=== PATIENT | female | born 1950 | race Caucasian/White ===

== ENCOUNTER → 2016-07-24 | Outpatient (CLI) | payer OTHER | END | disposition home or self-care (01) | LOC: GMAB 10:18 | PROVIDERS: ATTEND Family Medicine | DX: Z00.01 Encounter for general adult medical examination with abnormal findings (principal) ==

== ENCOUNTER 2017-05-19 08:57 | Day surgery (SDC) | payer MEDICARE, OTHER ==
[~2017-05-19 08:57] MED LIST: MIDAZOLAM INJ 2 MG/2 ML VIAL ONE; PROPARACAINE 0.5% OPHTH SOL 15 ML BTTL ONE; TROP 1%/CYCLOPEN 1%/PHENYL 2% DROPS ONE
[2017-05-19] MEDS ORDERED: MIDAZOLAM INJ 2 MG/2 ML VIAL ONE (10:27)
[2017-05-19] MEDS ORDERED: LIDOCAINE 1% PF 2 ML AMP INJ ONE (10:31)
[2017-05-19] MEDS ORDERED: DEXAMETHASONE 0.1% OPHTH SOL 1 DROP RIGHT_EYE ONE ×2 (10:36→10:42)
[2017-05-19] MEDS ORDERED: TOBRAMYCIN SULF 0.3 % OPHT SOL 1 DROP RIGHT_EYE ONE ×2 (10:36→10:42)
[2017-05-19] MEDS ORDERED: BRIMONIDINE 0.2% OPHTH DROPS RIGHT_EYE ONE ×2 (10:36→10:42)
[2017-05-19 12:04] VITALS: BP 119/76; TEMP 98.4; O2SAT 95
== END 2017-05-19 11:20 | disposition home health service (06) ==
LOC: AMB 08:57
PROVIDERS: ATTEND Ophthalmology
DX: H25.11 Age-related nuclear cataract, right eye (principal); I10 Essential (primary) hypertension; I25.10 Atherosclerotic heart disease of native coronary artery without angina pectoris; E11.36 Type 2 diabetes mellitus with diabetic cataract; Z88.2 Allergy status to sulfonamides; Z79.84 Long term (current) use of oral hypoglycemic drugs; Z79.899 Other long term (current) drug therapy
CPT/HCPCS: 00142; 66984; J2250

== ENCOUNTER 2017-06-02 05:42 | Day surgery (SDC) | payer MEDICARE, OTHER ==
[2017-06-02] MEDS ORDERED: TROP 1%/CYCLOPEN 1%/PHENYL 2% DROPS ONE (06:01)
[2017-06-02] MEDS ORDERED: MIDAZOLAM INJ 2 MG/2 ML VIAL ONE ×2 (06:53→10:15)
[2017-06-02] MEDS: PROPARACAINE 0.5% OPHTH SOL 15 ML BTTL ONE ×3 (09:35→10:18)
[2017-06-02] MEDS: TOBRAMYCIN SULF 0.3 % OPHT SOL 1 DROP LEFT_EYE ONE ×2 (09:35→10:35)
[2017-06-02] MEDS ORDERED: LIDOCAINE 1% PF 2 ML AMP INJ ONE (10:22)
[2017-06-02] MEDS ORDERED: DEXAMETHASONE 0.1% OPHTH SOL 1 DROP LEFT_EYE ONE ×2 (10:27→10:35)
[2017-06-02] MEDS ORDERED: TOBRAMYCIN SULF 0.3 % OPHT SOL 1 DROP LEFT_EYE ONE (10:27)
[2017-06-02] MEDS ORDERED: BRIMONIDINE 0.2% OPHTH DROPS LEFT_EYE ONE ×2 (10:28→10:35)
[2017-06-02 11:42] VITALS: BP 129/78; TEMP 96.4; O2SAT 93
== END 2017-06-02 11:20 | disposition home or self-care (01) ==
LOC: AMB 05:42
PROVIDERS: ATTEND Ophthalmology
DX: H25.12 Age-related nuclear cataract, left eye (principal); I10 Essential (primary) hypertension; I25.10 Atherosclerotic heart disease of native coronary artery without angina pectoris; E11.9 Type 2 diabetes mellitus without complications; Z79.4 Long term (current) use of insulin; Z79.899 Other long term (current) drug therapy
CPT/HCPCS: 00142; 36416; 66984; 82948; J2250

== ENCOUNTER → 2017-08-05 | Outpatient (CLI) | payer MEDICARE, OTHER | LOC: GMAB 10:33 | PROVIDERS: ATTEND Family Medicine | DX: I10 Essential (primary) hypertension (principal) ==

== ENCOUNTER → 2017-11-13 | Outpatient (CLI) | payer MEDICARE, OTHER | LOC: GMAE 14:57 | PROVIDERS: ATTEND Family Medicine | DX: R41.9 Unspecified symptoms and signs involving cognitive functions and awareness (principal) ==

== ENCOUNTER → 2017-11-14 | Outpatient (CLI) | payer MEDICARE, OTHER ==
--- NOTE | 2017-11-14 10:43 | CT ---
EXAM DESCRIPTION: Head CLINICAL HISTORY: MEMORY LOSS COMPARISON: None available TECHNIQUE: Noncontrast head CT was performed with routine protocol. FINDINGS: Normal goldstein-white matter differentiation. Ventricles and sulci are normal for age. No high density hemorrhage, focal edema or shift of the midline. No sulcal effacement. Normal orbital contents. Basilar cisterns appear clear. Intact calvarium with no fracture or lytic lesion. Normal aeration of tympanic cavities and mastoid air cells. No fluid levels in the paranasal sinuses. Skull base appears intact. Symmetrical internal auditory canals. Coronal and sagittal reformatted images confirm the findings. Empty sella is seen on the sagittal images. Prominent extra-axial CSF spaces. IMPRESSION: No acute intracranial pathologic process. This exam was performed according to our departmental dose-optimization program, which includes automated exposure control, adjustment of the mA and/or kV according to patient size and/or use of iterative reconstruction technique. Total DLP equals 859.97 mGycm. Electronically signed by: Tr Damon MD 11/14/2017 10:42 AM CDT
== END ==
LOC: CT 10:00
PROVIDERS: ATTEND Family Medicine
DX: R41.9 Unspecified symptoms and signs involving cognitive functions and awareness (principal)

== ENCOUNTER → 2018-01-09 | Outpatient (CLI) | payer MEDICARE, OTHER ==
--- NOTE | 2018-01-09 13:22 | MRI ---
EXAM DESCRIPTION: Brain w/oContrast: MRI. CLINICAL HISTORY: R41.3. Amnesia NOS. COMPARISON: None. TECHNIQUE: Multiplanar, high-field MRI unit, multiple diffusion sequences, multiple conventional sequences without contrast. FINDINGS: Bilateral multiple foci of hyperintense FLAIR and T2-weighted signal in the periventricular white matter and goldstein-white matter junctions of the cerebral hemispheres. . Largest lesion is abutting the frontal horn of the right lateral ventricle. No hemorrhage, no cerebral edema, no diffusion restriction.. Normal signal in the bilateral basal ganglia. Normal signal in the brainstem and cerebellar hemispheres. No hemorrhage, no cerebral edema, no diffusion restriction. Concordance of the diffusion and non-diffusion sequences with no diffusion restriction. Cortical sulci, ventricles, and other CSF spaces, and the subdural spaces are normally configured for patients age. No effacement or displacement. No midline shift. No extra-axial hemorrhage. Normal flow signal void in the major vessels of the [place], and the venous sinuses. IACs are symmetric bilaterally. Normal signal in the bilateral mastoid air cells. No mass effect in the bilateral cerebellopontine angles. Pituitary gland occupies only the base of the sella. Base of the cerebellar tonsils is at the level of the foramen magnum. Unremarkable signal in the paranasal sinuses. The bony calvarium is intact. IMPRESSION: 1. Bilateral small multiple foci of abnormal white matter signal most likely related to cerebral microvascular disease. Not associated with hemorrhage and edema mass effect or diffusion restriction. 2. No extra-axial hemorrhage or fluid collections. 3. Normal noncontrast diffusion MRI scan with no evidence of acute or subacute infarction. 4. Small pituitary gland in the sella, "empty sella". Nonspecific finding. Electronically signed by: James Mitchell MD 01/09/2018 1:20 PM CDT
== END ==
LOC: MRI 09:59
PROVIDERS: ATTEND Psychiatry & Neurology Neurology
DX: R41.3 Other amnesia (principal)

== ENCOUNTER 2018-06-17 21:37 | Emergency (ER) | payer MEDICARE, OTHER ==
[2018-06-17 22:01] VITALS: O2SAT 100
--- NOTE | 2018-06-17 22:02 | ED.PDOC ---
History of Present Illness - General Chief Complaint: Allergic Reaction Stated Complaint: stuffy nose, tongue burning after taking new med Time Seen by Provider: 06/17/18 21:56 Source: patient - History of Present Illness Initial Comments: Pt developed burning of tongue, tightness of throat and dyspnea after taking her first Glipizide pill. Sx's began within 30 min's of ingestion. Denies itching or rash. Pt took Benadryl 50 mg po 1 hr [employer] Timing/Duration: 1 hour Severity: moderate Activities at Onset: none Possible Cause: no prior episodes Improving Factors: nothing Worsening Factors: nothing Associated Symptoms: anxiety Respiratory Risk Factors: medications Allergies/Adverse Reactions: Allergies Fluconazole [From Diflucan] Allergy (Verified 06/17/18 22:01) Glipizide Allergy (Verified 06/17/18 22:01) Lisinopril Allergy (Verified 06/17/18 22:01) Sulfa Antibiotics Allergy (Verified 06/17/18 22:01) Home Medications: Ambulatory Orders Metformin HCl 500 mg PO BID 03/29/15 Review of Systems - Review of Systems Constitutional: Denies: chills, fever EENTM: States: throat swelling, mouth pain Respiratory: States: short of breath Cardiology: Denies: chest pain Gastrointestinal/Abdominal: Denies: abdominal pain, nausea, vomiting Genitourinary: States: no symptoms reported Musculoskeletal: States: no symptoms reported Skin: Denies: rash Neurological: States: numbness, paresthesia - to lips. Denies: headache Endocrine: States: no symptoms reported Hematologic/Lymphatic: States: no symptoms reported Past Medical History (General) - Patient Medical History Hx Seizures: No Hx Stroke: No Hx Dementia: No Hx Asthma: No Hx of COPD: No Hx Cardiac Disorders: No Hx Congestive Heart Failure: No Hx Pacemaker: No Hx Hypertension: Yes Hx Thyroid Disease: No Hx Diabetes: Yes Hx Gastroesophageal Reflux: No Hx Renal Disease: No Hx of HIV: No Hx MRSA: No - Vaccination History Hx Influenza Vaccination: Yes - Social History Hx Tobacco Use: No Family Medical History - Family History Mother Family History: Unknown Physical Exam - Physical Exam General Appearance: Alert, Anxious Eyes, Ears, Nose, Throat Exam: PERRL/EOMI, pharynx normal Neck: non-tender, full range of motion, supple Respiratory: lungs clear, normal breath sounds, no respiratory distress Cardiovascular/Chest: regular rate, rhythm, no edema Gastrointestinal/Abdominal: normal bowel sounds, non tender, soft Extremity: normal range of motion, non-tender, normal inspection Neurologic: alert, oriented x 3 Skin Exam: normal color, warm/dry Lymphatic: no adenopathy Progress - Progress Progress: 06/17/18 23:29 Pt is feeling better at this time Departure - Departure Clinical Impression: Allergic reaction caused by a drug Disposition: Discharge to Home or Self Care Departure Forms: ED Discharge - Pt. Copy, Patient Portal Self Enrollment Instructions: DI for Allergic Rhinitis Referrals: LIZZY PERDOMO MD [Primary Care Provider] - 1-2 Weeks Home Medications: Ambulatory Orders Metformin HCl 500 mg PO BID 03/29/15
[2018-06-17] MEDS ORDERED: FAMOTIDINE IV PREMIX 50 ML IVPB ONE (22:13)
[2018-06-17] MEDS: diphenhydrAMINE HCL 50 MG/ML VIAL IV ONE (22:16)
[2018-06-17] MEDS: FAMOTIDINE IV PREMIX 20 MG in PREMIX BAG 1 BAG IVPB ONE (22:16)
[2018-06-17] MEDS: methylPREDNISolone SODIUM SUC 125 MG/2 ML VIAL IV ONE (22:16)
[2018-06-17 23:40] VITALS: BP 165/90; TEMP 97.8
== END 2018-06-17 23:39 | disposition home or self-care (01) ==
LOC: ER 21:37
DX: R06.00 Dyspnea, unspecified (principal); R09.89 Other specified symptoms and signs involving the circulatory and respiratory systems; R20.2 Paresthesia of skin; T38.3X5A Adverse effect of insulin and oral hypoglycemic [antidiabetic] drugs, initial encounter; I10 Essential (primary) hypertension; E11.9 Type 2 diabetes mellitus without complications; Z79.84 Long term (current) use of oral hypoglycemic drugs; Z88.8 Allergy status to other drugs, medicaments and biological substances; Z88.2 Allergy status to sulfonamides
CPT/HCPCS: 36415; 80053; 85025; J1200; J2930; J3490

== ENCOUNTER 2019-06-15 19:42 | Emergency (ER) | payer MEDICARE, OTHER ==
[2019-06-15] MEDS ORDERED: SODIUM CHLORIDE 0.9% (FLUSH) 10 ML SYG IV PRN (20:09)
--- NOTE | 2019-06-15 20:42 | RAD ---
EXAM DESCRIPTION: Chest,1 View CLINICAL HISTORY: 69 years Female chest pain and sob COMPARISON: 02/22/2007 FINDINGS: The cardiomediastinal silhouette appears unremarkable. No consolidating infiltrates or pleural effusions. No pneumothorax. IMPRESSION: No acute abnormality is identified. Electronically signed by: Lisseth Hernandez MD 06/15/2019 8:41 PM CDT
--- NOTE | 2019-06-15 21:28 | ED.PDOC ---
History of Present Illness - General Chief Complaint: General Stated Complaint: sore throat, arm pain, elevated BP Time Seen by Provider: 06/15/19 20:09 Source: patient, RN notes reviewed, Vital Signs reviewed Exam Limitations: no limitations - History of Present Illness Initial Comments: Patient is a 69-year-old white female who presents with complaints of chest tightness, radiating down the left arm with some tightness in her throat and shortness of breath. Patient has been sick off and on for the last 2 weeks with a viral URI. She felt like she was getting better and then this started. The tightness is mild in intensity, squeezing in nature. It does not appear to be exertionally related. Patient has taken a Mucinex tablet and the tightness seems to resolve for approximately 3 hours and then comes back.Patient complains of a sore throat that is burning scratchy in nature. Worse with swallowing. Moderate in intensity. Patient believes she has strep throat.Sore throat is worse with swallowing. Nothing seems to improve it. Timing/Duration: other - 2 to 3 days. Severity: moderate Improving Factors: nothing, medication - Mucinex. Worsening Factors: eating Associated Symptoms: chest pain, cough, shortness of breath Allergies/Adverse Reactions: Allergies Fluconazole [From Diflucan] Allergy (Verified 06/15/19 21:23) Glipizide Allergy (Verified 06/15/19 21:23) Lisinopril Allergy (Verified 06/15/19 21:23) Sulfa Antibiotics Allergy (Verified 06/15/19 21:23) Home Medications: Ambulatory Orders Metformin HCl [Metformin Hydrochloride] 500 mg PO BID 03/29/15 Amoxicillin 1,000 mg PO BID #10 cap 06/15/19 Donepezil HCl [Aricept] 5 mg PO DAILY 06/15/19 Dulaglutide [Trulicity] 0.5 ml SC WKLY 06/15/19 Folic Acid,B2,B6,B12 [Cerefolin] 1 ea PO DAILY 06/15/19 Gabapentin 600 mg PO TID 06/15/19 Insulin Detemir [Levemir Pen] 10 units SC DAILY 06/15/19 Insulin Lispro [Humalog] See Protocol SC PRN 06/15/19 Losartan Potassium 50 mg PO BID 06/15/19 Pravastatin Sodium 80 mg PO DAILY 06/15/19 cloNAZepam [Klonopin] 0.5 mg PO PRN PRN 06/15/19 Review of Systems - Review of Systems Constitutional: States: see HPI, malaise. Denies: chills, fever EENTM: States: see HPI, throat pain, throat swelling. Denies: ear pain, nose pain, nose congestion Respiratory: States: see HPI, cough, short of breath. Denies: stridor, wheezing Cardiology: States: chest pain. Denies: palpitations, syncope Gastrointestinal/Abdominal: States: no symptoms reported. Denies: abdominal pain, nausea, vomiting Genitourinary: States: no symptoms reported. Denies: discharge, frequency Musculoskeletal: States: no symptoms reported. Denies: back pain, neck pain Skin: States: no symptoms reported. Denies: change in color, rash Neurological: States: no symptoms reported Endocrine: States: no symptoms reported. Denies: intolerance to cold, intolerance to heat Hematologic/Lymphatic: States: no symptoms reported All other Systems: No Change from Baseline Past Medical History (General) - Patient Medical History Hx Seizures: No Hx Stroke: No Hx Dementia: No Hx Asthma: No Hx of COPD: No Hx Cardiac Disorders: No Hx Congestive Heart Failure: No Hx Pacemaker: No Hx Hypertension: Yes Hx Thyroid Disease: No Hx Diabetes: Yes Hx Gastroesophageal Reflux: Yes Hx Renal Disease: No Hx Cancer: No Hx of HIV: No Hx Hepatitis C: No Hx MRSA: No Surgical History: Hysterectomy, other - Vaccination History Hx Influenza Vaccination: Yes - Social History Hx Tobacco Use: No Family Medical History - Family History Mother Family History: Unknown Physical Exam - Physical Exam General Appearance: Alert, Anxious, Comfortable, Well Developed, Well Groomed, Well Hydrated, Well Nourished Eye Exam: bilateral normal Ears, Nose, Throat: hearing grossly normal, pharyngeal erythema, tonsillar swelling Neck: full range of motion, supple, lymphadenopathy (R), lymphadenopathy (L) Respiratory: chest non-tender, lungs clear, normal breath sounds, no respiratory distress, no accessory muscle use Cardiovascular/Chest: normal peripheral pulses, regular rate, rhythm, no edema, no JVD, no murmur Peripheral Pulses: radial,right: 2+, radial,left: 2+ Gastrointestinal/Abdominal: normal bowel sounds, non tender, soft, no organomegaly, no pulsatile mass Back Exam: normal inspection, no CVA tenderness, no vertebral tenderness Extremity: normal range of motion, non-tender, normal inspection 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 Progress - Progress Progress: Differential diagnosis: Acute [place], pneumonia, strep, viral URI among others. 06/15/19 22:23 Patient with a normal EKG and normal chest x-ray. Strep is positive. Remainder of labs are unremarkable. We will plan on treating for strep pharyngitis. I discussed this plan of care with the patient and she voices understanding and agreement. Chintan Singh M.D. #[id number] - Results/Orders Results/Orders: 06/15/19 20:09 IV Care:Saline Lock per Protoc QSHIFT Telemetry ONCE Sodium Chloride 0.9% (Flush) [Saline Flush Syringe] 3 ml IV PRN PRN 06/15/19 20:10 Pulse Oximetry Assessment DAILY 06/15/19 20:15 EKG STAT 06/16/19 09:00 Pulse Ox Daily Laboratory Results - last 24 hr 06/15/19 06/15/19 20:18 21:49 WBC 5.8 RBC 4.17 L Hgb 12.0 Hct 36.0 MCV 86.4 MCH 28.7 MCHC 33.2 RDW 13.9 Plt Count 236 MPV 7.4 Absolute Neuts (auto) 3.20 Absolute Lymphs (auto) 2.00 Absolute Monos (auto) 0.40 Absolute Eos (auto) 0.10 Absolute Basos (auto) 0.00 Neutrophils % 55.4 Lymphocytes % 34.6 Monocytes % 7.0 Eosinophils % 2.5 Basophils % 0.5 PT 10.2 INR 1.03 PTT (SP) 23.2 Sodium 129 L Potassium 3.6 Chloride 93 L Carbon Dioxide 26 Anion Gap 13.6 BUN 13 Creatinine 0.58 L BUN/Creatinine Ratio 22.4 H Random Glucose 175 H Serum Osmolality 263.3 L Calcium 9.3 Magnesium 2.0 Creatine Kinase 141 H CK-MB (CK-2) 2.9 CK-MB (CK-2) % Not Reportable Troponin I < 0.02 Group A Strep Rapid Positive EKG performed on 15 June 2019 at 2004 hrs.: Normal sinus rhythm at 79 bpm, normal axis deviation, no ST or T wave changes, normal EKG. No previous EKG available for comparison. EXAM DESCRIPTION: Chest,1 View CLINICAL HISTORY: 69 years Female chest pain and sob COMPARISON: 02/22/2007 FINDINGS: The cardiomediastinal silhouette appears unremarkable. No consolidating infiltrates or pleural effusions. No pneumothorax. IMPRESSION: No acute abnormality is identified. Electronically signed by: Lisseth Hernandez MD 06/15/2019 8:41 PM Departure - Departure Clinical Impression: Strep pharyngitis, Viral upper respiratory tract infection with cough Chest pain Qualifiers: Chest pain type: unspecified Qualified Code(s): R07.9 - Chest pain, unspecified Time of Disposition: 22:25 Disposition: Discharge to Home or Self Care Condition: Good Departure Forms: ED Discharge - Pt. Copy, Patient Portal Self Enrollment Diet: resume usual diet Activity: increase activity as tolerated Referrals: LIZZY PERDOMO MD [Primary Care Provider] - 1-5 Days Prescriptions: Amoxicillin 1,000 mg PO BID #10 cap Home Medications: Ambulatory Orders Metformin HCl [Metformin Hydrochloride] 500 mg PO BID 03/29/15 Amoxicillin 1,000 mg PO BID #10 cap 06/15/19 Donepezil HCl [Aricept] 5 mg PO DAILY 06/15/19 Dulaglutide [Trulicity] 0.5 ml SC WKLY 06/15/19 Folic Acid,B2,B6,B12 [Cerefolin] 1 ea PO DAILY 06/15/19 Gabapentin 600 mg PO TID 06/15/19 Insulin Detemir [Levemir Pen] 10 units SC DAILY 06/15/19 Insulin Lispro [Humalog] See Protocol SC PRN 06/15/19 Losartan Potassium 50 mg PO BID 06/15/19 Pravastatin Sodium 80 mg PO DAILY 06/15/19 cloNAZepam [Klonopin] 0.5 mg PO PRN PRN 06/15/19
[2019-06-15] MEDS ORDERED: AMOXICILLIN & POT CLAVULANATE 875 MG TAB PO ONE (22:18)
[2019-06-15] MEDS ORDERED: PENICILLIN BENZATHINE 1.2 MU 1.2 MU/2 ML SYG IM ONE (22:19)
[2019-06-15 23:15] VITALS: O2SAT 98
[2019-06-15 23:18] VITALS: BP 178/88; TEMP 98.7
== END 2019-06-15 23:00 | disposition home or self-care (01) ==
LOC: ER 19:42
DX: J02.0 Streptococcal pharyngitis (principal); J06.9 Acute upper respiratory infection, unspecified; R07.9 Chest pain, unspecified; E11.9 Type 2 diabetes mellitus without complications; I10 Essential (primary) hypertension; Z79.4 Long term (current) use of insulin; Z79.899 Other long term (current) drug therapy; Z88.8 Allergy status to other drugs, medicaments and biological substances; Z88.2 Allergy status to sulfonamides
CPT/HCPCS: 36415; 71045; 80048; 82550; 82553; 84484; 85025; 85610; 85730; 87880; 93005; J0561

== ENCOUNTER → 2020-04-04 | Outpatient (CLI) | payer MEDICARE, OTHER | LOC: YCFC.O 12:52 | PROVIDERS: ATTEND Family Medicine | DX: I10 Essential (primary) hypertension (principal); E11.9 Type 2 diabetes mellitus without complications; E78.5 Hyperlipidemia, unspecified; E03.9 Hypothyroidism, unspecified; R68.89 Other general symptoms and signs; G62.9 Polyneuropathy, unspecified; D64.89 Other specified anemias ==